=== PATIENT | male | born 1990 | race Caucasian/White ===

== ENCOUNTER 2023-11-14 09:18 | Emergency (ER) | payer MEDICARE, SELFPAY ==
[2023-11-14 09:30] VITALS: BP 145/84; PULSE 82; RESP 18; TEMP 36.8; O2SAT 97
--- NOTE | 2023-11-14 09:31 | ED_ITS ---
HPI - Abdominal Pain General: Stated Complaint: lower abd pain Time Seen by Provider: 11/14/23 09:30 Discharge Plan Discharge Condition: Stable Coding Level of Care Code ED [employer] for Kat Mansfield
--- NOTE | 2023-11-14 09:39 | US_ITS ---
WS: [id number] ULTRASOUND EXAMINATION CLINICAL INFORMATION: L pain/swelling? also look for hernia COMPARISON: None. FINDINGS: TESTES Suggestion of slight LEFT testicular orchitis with trace edema and some increased vascularity Normal RIGHT testicle. Right testes size: 4.7 cm x 2.0 cm x 2.5 cm. Left testes size: 4.5 cm x 2.4 cm x 2.5 cm. EPIDIDYMIDES Edematous LEFT epididymis with increased vascularity compatible with epididymitis. Right epididymis size: 0.6 cm x 1.1 cm x 0.9 cm. Left epididymitis size: 0.8 cm x 1.4 cm x 1.4 cm. HYDROCELE None. VARICOCELE None. OTHER FINDINGS None. IMPRESSION: 1. LEFT epididymitis with edema in the LEFT epididymis with increased vascularity. 2. Suggestion of possible slight LEFT testicular orchitis. No evidence of abscess or fluid collectio n. Normal RIGHT testicle. 3. No hernia.
--- NOTE | 2023-11-14 10:44 | W.ED.MALEGU ---
HPI - Male Genitourinary General: Chief complaint: Urogenital-Male Stated complaint: lower abd pain Time Seen by Provider: 11/14/23 09:30 Source: patient Mode of arrival: ambulatory Limitations: no limitations History of Present Illness: Patient is a 33-year-old male who presents to ED today for a complaint of left testicular pain and swelling. Patient states he began noticing pain approximately a week or so ago. He feels like area has been swollen over the past 2 to 3 days and pain is increasing. He has not noticed any redness or warmth to the scrotum. He is not having any penile discharge, burning with urination, or any new rashes/lesions. He is monogamous with his significant other and has no concern for sexually transmitted infections. Denies anal intercourse. He has not been running fevers. He has not noticed any mass/bulge. He feels like symptoms are worse with walking and when he is up on his feet for long periods of time. MD Complaint: testicle pain and testicle swelling Onset (ago): day(s) Duration: constant Location: left testicle Radiation: left testicle Severity: moderate Quality: aching Relieving factors: rest and other (sitting/lying down) Exacerbating factors: other (walking, upright for long periods) Associated symptoms: Deny dysuria, hematuria, nausea, urinary incontinence or vomiting Related Data: Sexually active: Yes (monogamous with partner) Review of Systems Const: Denies: fever(s), chills, body aches, fatigue or malaise GI: Denies: abdominal pain, nausea, vomiting, diarrhea or change in bowel habits : Reports: genital pain, testicular pain and scrotal swelling; Denies: flank pain, difficulty urinating, dysuria, urinary frequency, urinary urgency, urinary hesitancy, urinary incontinence, hematuria, genital lesions, penile discharge, testicular mass or hematospermia Physical Exam Const: COMMON NORMALS: no acute distress, average body habitus, patient oriented x3, no limitations, healthy appearing, alert and well nourished GI: COMMON NORMALS: Normal to inspection, nondistended, normoactive bowel sounds present, Soft to palpation, non-tender, No hepatosplenomegaly present and no masses PALPATION: Yes Soft to palpation and Yes No hepatosplenomegaly present : COMMON NORMALS: Yes no CVA tenderness, Yes normal external exam, Yes no scrotal swelling and Yes No hernias present BLADDER/KIDNEY EXAM: Yes no CVA tenderness PENIS: normal penis MEATUS: meatus normal SCROTUM: Yes testes descended bilaterally and Yes Scrotal tenderness present TESTES: No testicular swelling, Yes testicular tenderness Testicular tenderness laterality: left, No testicular mass and Yes epididymal tenderness (left) Back/Pelvis: COMMON NORMALS: no CVA tenderness Neuro: COMMON NORMALS: patient oriented x3 SENSORIUM/ORIENTATION: Yes alert Course Vital Signs: Vital signs: Vital Signs Temperature 98.2 F 11/14/23 09:30 Pulse Rate 82 11/14/23 09:30 Respiratory Rate 18 11/14/23 09:30 Blood Pressure 145/84 11/14/23 09:30 Pulse Oximetry 97 11/14/23 09:30 Oxygen Delivery Me thod Room Air 11/14/23 09:30 MDM - Male Medical Decision Making US report from tech showing L sided epididymitis/orchitis. Patient is sexually monogamous with his significant other and has no concern for STIs. Will be treated with Levaquin 500 mg daily x 10 days. Discussed other conservative therapies. Symptoms to prompt a medical re-evaluation were discussed. Differential Diagnosis Likely urinary tract infection, urethritis, epididymitis, prostatitis and inguinal hernia Medical Records I reviewed the patient's medical records. XR interpretation done by ED provider, pending radiology final review (prelim report from [facility]) Discharge Plan Discharge Patient Disposition: Home Clinical Impression: Left epididymitis Condition: Stable Prescriptions: New levofloxacin 500 mg tablet 500 mg PO DAILY 10 Days Qty: 10 0RF No Action trazodone 50 mg tablet 50 mg PO BEDTIME oxcarbazepine 300 mg tablet 300 mg PO BID Discharge Orders: Discharge ED (Routine); Ordered 11/14/23 Ordered By: Linda Pierre Patient Instructions: Epididymitis (ED), Epididymo-Orchitis (ED) Activity Restrictions/Additional Instructions: As we discussed you need to fill your antibiotics and start them immediately. Other things you can do to help with discomfort tight fitting underwear, ice, and [id number] anti-inflammatories. You need to seek medical re-evaluation for worsening pain, redness, swelling, fevers, or any other concerns you may have. Coding Level of Care Code ED [employer] Professor for Kat Mansfield
[2023-11-14 11:15] LABS: Add Urine Microscopic? NO; Charge for UA Resulting for Rev
[2023-11-14 11:19] VITALS: BP 145/84; PULSE 88; O2SAT 94
[2023-11-14 11:26] VITALS: BP 145/84; PULSE 88; RESP 18; TEMP 36.8; O2SAT 94
[2023-11-14 11:27] LABS: Bilirubin Urine Neg (Negative); Blood Urine Neg (Negative); Glucose Urine UA Norm (Normal); Ketones Urine Negative (Negative); Leukocyte Esterase Urine Negative (Negative); Nitrate Urine Negative (Negative); Protein Urine Neg (Negative); Urine Appearance Clear (CLEAR); Urine Color Light yellow (Yellow); Urobilinogen Urine Neg (Negative); pH Urine 7 (5-7)
== END 2023-11-14 11:27 | disposition home or self-care (01) ==
PROVIDERS: Emergency Provider Physician Assistant
DX: N45.1 Epididymitis (principal)
CPT/HCPCS: 76870; 81003; 99284